=== PATIENT | female | born 1960 | race Caucasian/White ===

== ENCOUNTER 2024-02-20 07:31 | Outpatient (CLI) | payer BC, SELFPAY ==
--- NOTE | ~2024-02-20 | MR_ITS ---
EXAMINATION: MR abdomen wo/w con DATE: 02/20/2024 08:45 INDICATION: Pancreatic cyst TECHNIQUE: Magnetic resonance imaging (MRI) of the abdomen was performed without and with 10 mL Multi david intravenous contrast. Sequences included coronal T2-weighted SS-FSE, coronal and axial FS 2D-F IESTA, axial STIR FSE, axial T2-weighted SS-FSE, axial T2-weighted FS SS-FSE, axial diffusion-weighte d SE, axial dual-echo T1-weighted FSPGR, and axial and coronal T1-weighted LAVA. Postcontrast axial T 1-weighted LAVA images were obtained in a time course. Postcontrast coronal T1-weighted LAVA images w ere obtained. COMPARISON: None. FINDINGS: Heart size is normal. No pericardial or pleural effusion. There is stenting along the descending thor acic aorta. 2.8 cm hemangioma in segment 3 of the liver which is T2 hyperintense with lobular margins and with peripheral discontiguous puddling of contrast isodense to the aorta which progressively soledad ls in on delayed post contrast imaging. There are couple additional subcentimeter flash filling heman giomas in the right hepatic lobe. Gallbladder, spleen, bilateral adrenal glands and kidneys are danna l. 12 x 9 mm cystic lesion with a few thin internal septations located at the junction of the body an d tail the pancreas. The lesion appears contiguous with the normal caliber main pancreatic duct on th e coronal images. No evident solid nodular enhancing component. Visualized bowels are unremarkable wi th no obstruction. No pathologically enlarged adenopathy in the abdomen or visualized pelvis. There i s normal bone marrow signal throughout. IMPRESSION: 1. 12 x 9 mm complex cystic lesion at the junction of the body and tail the pancreas with a few thin internal septations but without evident solid enhancing soft tissue component. 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 Differential would include pancreatic pseudocyst estimate there i s been history of prior pancreatitis, serous cystadenoma, mucinous cystic neoplasm (MCN) and neuroen docrine tumor. Consider correlation with serum Ca 19.9 levels in the follow-up MRI and/or endoscopic ultrasound at 6 months and 12 months. Reviewed, dictated and finalized at location A. IMPRESSION: 1. 12 x 9 mm complex cystic lesion at the junction of the body and tail the becerril creas with a few thin internal septations but without evident solid enhancing s oft tissue component. There appears to be communication with the normal caliber main pancreatic duct which would favor a side branch intraductal papillary muc inous neoplasm (IPMN). Differential would include pancreatic pseudocyst estimat e there is been history of prior pancreatitis, serous cystadenoma, mucinous cy stic neoplasm (MCN) and neuroendocrine tumor. Consider correlation with serum C a 19.9 levels in the follow-up MRI and/or endoscopic ultrasound at 6 months and 12 months.
== END 2024-02-20 07:32 ==
PROVIDERS: PCP Family Medicine; Visit Provider Family Medicine
DX: K86.2 Cyst of pancreas (principal); D18.03 Hemangioma of intra-abdominal structures
CPT/HCPCS: 74183; A9577